=== PATIENT | female | born 1970 | race Caucasian/White ===

== ENCOUNTER → 2017-12-12 | Outpatient (CLI) | payer OTHER | END | disposition home or self-care (01) | LOC: CFH 07:13 | PROVIDERS: ATTEND Orthopaedic Surgery | DX: M66.272 Spontaneous rupture of extensor tendons, left ankle and foot (principal); M67.472 Ganglion, left ankle and foot; T14.8XXA Other injury of unspecified body region, initial encounter; X58.XXXA Exposure to other specified factors, initial encounter; Y93.89 Activity, other specified; Y92.89 Other specified places as the place of occurrence of the external cause; Y99.8 Other external cause status ==

== ENCOUNTER 2019-04-25 08:24 | Emergency (ER) | payer OTHER ==
[~2019-04-25] VITALS: Ht 180.3 cm; Wt 88.0 kg
[2019-04-25 08:28] VITALS: BP 124/73
--- NOTE | 2019-04-25 09:33 | NUR ---
PT DECLINES ICE PACK AND WARM BLANKET WHEN OFFERED BY THIS RN.
--- NOTE | 2019-04-25 10:02 | NUR ---
PT GIVEN ROCKER SHOE, PT REFUSES CRUTCHES. PT GIVEN DC INSTRUCTIONS, DEMONSTRATES UNDERSTANDING. PT AMB TO DC DESK WITH STEADY GAIT ACCOMPANIED BY SON.
== END 2019-04-25 10:01 | disposition home or self-care (01) ==
LOC: ED 09:26
DX: S90.31XA Contusion of right foot, initial encounter (principal); Z88.8 Allergy status to other drugs, medicaments and biological substances; X58.XXXA Exposure to other specified factors, initial encounter; Y93.89 Activity, other specified; Y92.009 Unspecified place in unspecified non-institutional (private) residence as the place of occurrence of the external cause; Y99.8 Other external cause status
CPT/HCPCS: 99283

== ENCOUNTER → 2019-12-24 | Outpatient (CLI) | payer OTHER ==
[~2019-12-24] MED LIST: SINCALIDE (KINEVAC) 5 MCG ONE
== END | disposition home or self-care (01) ==
LOC: RAD 10:44
PROVIDERS: ATTEND Family Medicine
DX: K76.89 Other specified diseases of liver (principal)
CPT/HCPCS: 78227; A9537; J2805

== ENCOUNTER → 2020-03-10 | Outpatient (CLI) | payer OTHER | END | disposition home or self-care (01) | LOC: STAR 15:36 | PROVIDERS: ATTEND Surgery | DX: Z20.828 Contact with and (suspected) exposure to other viral communicable diseases (principal) | CPT/HCPCS: 87635 ==

== ENCOUNTER 2020-03-16 11:15 | Day surgery (SDC) | payer OTHER ==
[~2020-03-16] VITALS: Ht 177.8 cm; Wt 92.0 kg
[2020-03-16] MEDS ORDERED: INDOCYANINE GREEN 25 MG VIAL ONE (12:05)
[2020-03-16 12:07] VITALS: BP 124/79
[2020-03-16] MEDS ORDERED: TIZA2CAP PO (12:22)
[2020-03-16] MEDS ORDERED: TOLT2CAP22 PO (12:22)
[2020-03-16] MEDS ORDERED: METH25VI22 PO (12:22)
[2020-03-16] MEDS ORDERED: OMEP20TA62 PO (12:22)
[2020-03-16] MEDS ORDERED: FOLI0.8T2 PO (12:22)
[2020-03-16] MEDS ORDERED: METH-377 PO (12:22)
[2020-03-16] MEDS ORDERED: FLUO10CA15 PO (12:22)
[2020-03-16] MEDS ORDERED: RISA150S SQ (12:22)
[2020-03-16] MEDS ORDERED: INDOCYANINE GREEN 25 MG VIAL IV ONE (12:30)
[2020-03-16] MEDS ORDERED: CHLORHEXIDINE 15 ML UDC MM ONE (12:30)
[2020-03-16] MEDS ORDERED: LACTATED RINGERS 1,000 ML IV SCH (12:30)
[2020-03-16] MEDS ORDERED: PROPOFOL 10 MG/ML, 20ML ONE (13:00)
[2020-03-16] MEDS ORDERED: FENTANYL PF 100 MCG/2ML ONE ×3 (13:00→14:40)
[2020-03-16] MEDS ORDERED: ONDANSETRON 2MG/ML, 2ML ONE ×2 (13:00→15:47)
[2020-03-16] MEDS ORDERED: HYDROmorphone 1 MG/ML, 1ML INJ IVPush PRN (13:00)
[2020-03-16] MEDS ORDERED: CEFAZOLIN 1,000 MG ONE (13:00)
[2020-03-16] MEDS ORDERED: NEOSTIGMINE 1 MG/ML, 10ML ONE (13:00)
[2020-03-16] MEDS ORDERED: MEPERIDINE/PF 25MG/0.5ML IVPush PRN (13:00)
[2020-03-16] MEDS ORDERED: KETOROLAC 30 MG/1 ML IVPush PRN (13:00)
[2020-03-16] MEDS ORDERED: METOCLOPRAMIDE 5 MG/ML, 2ML IVPush PRN (13:00)
[2020-03-16] MEDS ORDERED: SUCCINYLCHOLINE 20 MG/ML, 10ML ONE (13:00)
[2020-03-16] MEDS ORDERED: HYDROcodone/APAP 7.5-325MG/15ML UDC PO PRN (13:00)
[2020-03-16] MEDS ORDERED: MIDAZOLAM 1 MG/ML, 2ML ONE (13:00)
[2020-03-16] MEDS ORDERED: GLYCOPYRROLATE 0.2MG/1ML, 5ML ONE (13:00)
[2020-03-16] MEDS ORDERED: ROCURONIUM 10MG/ML,5ML ONE (13:00)
[2020-03-16] MEDS ORDERED: OXYcodone 5 MG/5 ML ORAL.SOL UDC PO PRN (13:00)
[2020-03-16] MEDS ORDERED: EPINEPHRINE 1 MG/ML, 1ML ONE (13:24)
[2020-03-16] MEDS ORDERED: BUPIVACAINE/PF 0.25% ONE (13:24)
[2020-03-16] MEDS ORDERED: DEXAMETHASONE 4 MG/ML, 1ML ONE (13:48)
[2020-03-16] MEDS ORDERED: hydrALAzine 20 MG/ML, 1ML ONE (13:48)
[2020-03-16] MEDS: FENTANYL PF 100 MCG/2ML IV PRN ×2 (14:40→14:55)
[2020-03-16] MEDS ORDERED: KETOROLAC 30 MG/1 ML ONE (14:41)
[2020-03-16] MEDS ORDERED: METOCLOPRAMIDE 5 MG/ML, 2ML ONE (14:44)
[2020-03-16] MEDS ORDERED: LORazepam 2 MG/ML, 1ML ONE (14:56)
[2020-03-16] MEDS ORDERED: LORazepam 2 MG/ML, 1ML IVPush PRN (15:00)
[2020-03-16] MEDS ORDERED: HYDROcodone/APAP 7.5-325MG/15ML UDC ONE (15:39)
[2020-03-16] MEDS ORDERED: ONDANSETRON 2MG/ML, 2ML IVPush ONE (16:00)
== END 2020-03-16 18:00 | disposition home or self-care (01) ==
LOC: OUT 11:15
PROVIDERS: ATTEND Surgery
DX: K81.1 Chronic cholecystitis (principal); M19.90 Unspecified osteoarthritis, unspecified site; F12.90 Cannabis use, unspecified, uncomplicated; K21.9 Gastro-esophageal reflux disease without esophagitis; F41.9 Anxiety disorder, unspecified; F32.9 Major depressive disorder, single episode, unspecified; Z79.899 Other long term (current) drug therapy; Z88.8 Allergy status to other drugs, medicaments and biological substances; Z87.891 Personal history of nicotine dependence
CPT/HCPCS: 47563; 88304; J0171; J0330; J0360; J0690; J1100; J1885; J2060; J2250; J2405; J2704; J2710; J2765; J3010; J7120; S2900